=== PATIENT | female | born 1995 | race Hispanic/Latino ===

== ENCOUNTER 2018-01-02 13:40 | Emergency (ER) | payer SELFPAY ==
[~2018-01-02] VITALS: Ht 157.5 cm; Wt 63.5 kg
[2018-01-02 13:52] VITALS: BP 114/65
--- NOTE | 2018-01-02 13:55 | ED UPPER/LOWER EXTREMITY COMPL ---
History of Present Illness General Chief Complaint: Upper Extremity Problem Stated Complaint: R ARM NUMBNESS TINLGING PAIN RADIATING TO BACK?? Source: patient Exam Limitations: no limitations Vital Signs & Intake/Output Vital Signs & Intake/Output Vital Signs Date Time Temp Pulse Resp B/P B/P Pulse O2 O2 Flow FiO2 Mean Ox Delivery Rate 01/02 1615 Room Air 01/02 1352 96.5 91 20 114/65 98 Room Air Allergies Coded Allergies: latex (UNKNOWN 01/02/18) Uncoded Allergies: SEAFOOD (UNKNOWN 01/02/18) Reconcile Medications Cyclobenzaprine HCl 10 MG TABLET 1 TAB PO TID SPASMS Methylprednisolone. (Medrol) 4 MG TAB.DS.PK 1 DP PO AD tigling right arm 6 on day 1 then reduce by one tablet daily until gone Triage Note: PT TO ED C/O RIGHT ARM NUMBNESS THAT RADIATES TO BACK AND DOWN TO HAND X 2 WEEKS. Triage Nurses Notes Reviewed? yes Onset: Abrupt Duration: week(s): (2), constant Timing: recent history Severity: moderate, severe Pain/Injury Location: Right: Shoulder. No Modifying Factors: none : No Patient currently breastfeeds: No HPI: 22-year-old female comes into the emergency room for further evaluation of right shoulder pain. Patient reports associated numbness and tingling that radiates down her right shoulder into her fingers. She has associated pain. Worse with certain movements of her shoulder. Patient reports it started a couple weeks ago. She reports she woke up and the symptoms got progressively worse today. She came in for further evaluation. (Man Austin) Past History Travel History Traveled to [place] past 21 day No Medical History Any Pertinent Medical History? none Surgical History Surgical History: non-contributory Psychosocial History What is your primary language Albanian Tobacco Use: Never used ETOH Use: denies use Illicit Drug Use: denies illicit drug use Family History Hx Contributory? No (Man Austin) Review of Systems Review of Systems Constitutional: Reports: no symptoms. EENTM: Reports: no symptoms. Respiratory: Reports: no symptoms. Cardiovascular: Reports: no symptoms. Gastrointestinal/Abdominal: Reports: no symptoms. Genitourinary: Reports: no symptoms. Musculoskeletal: Reports: see HPI. Skin: Reports: no symptoms. Neurological/Psychological: Reports: no symptoms. Hematologic/Endocrine: Reports: no symptoms. Immunological: Reports: no symptoms. All Other Systems: Reviewed and Negative (Man Austin) Physical Exam Physical Exam General Appearance: well developed/nourished, no apparent distress, alert, awake Head: atraumatic Eyes: Bilateral: normal appearance. 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, radial pulse intact, gross sensation intact, Neurologic/Tendon: normal sensation, normal motor functions, normal tendon functions, responds to pain, no evidence tendon injury, no pulse deficit Skin: intact, normal color, warm/dry Diagram Shoulders Front/Back 1) (Man Austin) Progress Differential Diagnosis: contusion, dislocation, fracture, septic arthritis, sprain, tendon injury, muscle strain Plan of Care: Orders Procedure Date/time Status Durable Medical Equipment 01/02 1549 Active URINE 01/02 1355 Complete Laboratory Tests 01/02/18 1410: Urine Test NEGATIVE Diagnostic Imaging: Viewed by Me: Radiology Read. Discussed w/RAD: Radiology Read. Radiology Impression: PATIENT: SHERLYN JOHNSON PRESENT AGE: 22 PATIENT ACCOUNT NO: [id number] : 97 LOCATION: [facility] ORDERING PHYSICIAN: Man SIMON SERVICE DATE: 01/02/18-1354 EXAM TYPE : RAD - XRY-SHOULDER COMPLETE-RIGHT EXAMINATION: XR SHOULDER, RIGHT CLINICAL INFORMATION: RIGHT SHOULDER PAIN, TINGLING DOWN ARM COMPARISON: None TECHNIQUE: AP external rotation, Grashey, scapular Y, and axillary views of the right shoulder. FINDINGS: The humeral head appears normally located within the glenoid cavity. There is a tiny cortical step-off along the lateral aspect at the level of the epiphysis. This is best appreciated on the Grashey view. Otherwise, no evidence for acute fracture. There is prominence of the acromioclavicular joint which measures 5 mm. On the external rotation view of the clavicle appears slightly superiorly positioned compared to the acromium. The coracoclavicular interval is maintained. The right lung apex is clear. IMPRESSION: 1. Question possible nondisplaced fracture involving the growth plate of the proximal humerus laterally. Recommend correlation with symptoms. 2. Question injury to the acromioclavicular joint. This could be confirmed and further assessed with radiographs of the contralateral side and weightbearing examination. DICTATED BY : Shahla Harper MD DATE/TIME DICTATED:01/02/181506 EMERGENCY VETERINARY ASSISTANT:[place] DATE/TIME TRANSCRIBED:01/02/181506 CONFIDENTIAL, DO NOT COPY WITHOUT APPROPRIATE AUTHORIZATION. <Electronically signed in Other Vendor System> SIGNED BY: Shahla Harper MD 01/02/181516 (Man Austin) Departure Departure Disposition: HOME OR SELF CARE Condition: Stable Clinical Impression Primary Impression: Right shoulder pain Secondary Impressions: Numbness and tingling in right hand Referrals: Clau GUERRA,Gregory Additional Instructions: Follow-up with orthopedic doctor. Take Flexeril and Medrol Dosepak as prescribed. Return if any concerns worsening symptoms. Please go over all results of today's visit with your primary care doctor. Contact your primary care doctor to let them know you were here in the emergency room. There may be nonspecific findings which may not be related to your visit today here in the emergency room but may require further evaluation and chronic monitoring by your primary care doctor. If you had a laceration today the chance of foreign body always remains. You should follow-up with your primary care doctor for recheck in 3-5 days for a wound check. If you had an x-ray done there is a chance that a fracture could have been missed on initial read and you should follow-up with your primary care doctor for repeat x-rays if symptoms persist. If your blood pressure was elevated here in the emergency room please have rechecked by [facility] primary care doctor within the next 48. If you were prescribed a narcotic here in the emergency room or any type of controlled substances you're not allowed to drive while taking this medication or operate any type of heavy machinery. Narcotics can make you feel lightheaded dizziness nausea and can cause constipation. You may need to chicken picker a stool softener. Thank you for choosing [facility] emergency room. Please return to the emergency room immediately if you have any other concerns worsening of symptoms. Departure Forms: Customer Survey General Discharge Information Prescriptions: Current Visit Scripts Methylprednisolone. (Medrol) 1 DP PO AD #1 DP 6 on day 1 then reduce by one tablet daily until gone Cyclobenzaprine HCl 1 TAB PO TID #30 TAB Comments 01/02/2018 4:39:14 PM Patient clinically looks well. Patient is in no apparent distress. She had no falls or trauma. She reports that she had broken her right shoulder when she was a kid. No clinical signs for approximately humerus fracture. Patient was placed in a shoulder immobilizer and referred to orthopedic doctor. Ibuprofen Medrol Dosepak. Return if any other concerns. No motor weakness. Cervical radiculopathy versus muscle spasming. (Man Austin) PA/[employer] Co-Sign Statement Statement: ED Attending supervision documentation- [] I saw and evaluated the patient. I have also reviewed all the pertinent lab results and diagnostic results. I agree with the findings and the plan of care as documented in the PA's/KIL[employer]OURER's documentation. [X] I have reviewed the ED Record and agree with the PA's/KIL[employer] LABOURER's documentation. [] Additions or exceptions (if any) to the PAs/KIL[employer] LABOURER's note and plan are summarized below: [] (Polo GUERRA,Roger Barnett) Procedures Splinting Location: Right shoulder Pre-Made Type: shoulder mobilizer Splint Applied By: splint applied by me Pre-Proc Neuro Vasc Exam: normal Post-Proc Neuro Vasc Exam: normal (Man Austin)
--- NOTE | 2018-01-02 15:17 | RADIOLOGY REPORT ---
EXAMINATION: XR SHOULDER, RIGHT CLINICAL INFORMATION: RIGHT SHOULDER PAIN, TINGLING DOWN ARM COMPARISON: None TECHNIQUE: AP external rotation, Grashey, scapular Y, and axillary views of the right shoulder. FINDINGS: The humeral head appears normally located within the glenoid cavity. There is a tiny cortical step-off along the lateral aspect at the level of the epiphysis. This is best appreciated on the Grashey view. Otherwise, no evidence for acute fracture. There is prominence of the acromioclavicular joint which measures 5 mm. On the external rotation view of the clavicle appears slightly superiorly positioned compared to the acromium. The coracoclavicular interval is maintained. The right lung apex is clear. IMPRESSION: 1. Question possible nondisplaced fracture involving the growth plate of the proximal humerus laterally. Recommend correlation with symptoms. 2. Question injury to the acromioclavicular joint. This could be confirmed and further assessed with radiographs of the contralateral side and weightbearing examination.
[2018-01-02] MEDS ORDERED: MEDROL4 M2 PO (15:48)
[2018-01-02] MEDS ORDERED: CYCLOBENZAPRINE10 M1 PO (15:48)
== END 2018-01-02 16:16 ==
LOC: ERH 13:40
DX: M25.511 Pain in right shoulder (principal); R20.0 Anesthesia of skin
CPT/HCPCS: 73030-RT; 81025

== ENCOUNTER 2018-02-20 23:41 | Emergency (ER) | payer OTHER ==
[~2018-02-20] VITALS: Ht 157.5 cm; Wt 67.1 kg
[~2018-02-20 23:41] MED LIST: CYCLOBENZAPRINE10 M1 PO; MEDROL4 M2 PO
[2018-02-21 01:30] VITALS: BP 130/60
--- NOTE | 2018-02-21 01:45 | ED NECK/BACK PAIN COMPLAINT ---
History of Present Illness General Chief Complaint: Low Back Pain/Injury Stated Complaint: LOW BACK PAIN Source: patient Exam Limitations: no limitations Vital Signs & Intake/Output Vital Signs & Intake/Output Vital Signs Date Time Temp Pulse Resp B/P B/P Pulse O2 O2 Flow FiO2 Mean Ox Delivery Rate 02/21 0130 98.6 85 18 130/60 99 Room Air 02/21 0004 99.7 89 20 104/62 96 Room Air ED Intake and Output 02/21 0000 02/20 1200 Intake Total Output Total Balance Patient 148 lb Weight Weight Standing Scale Measurement Method Allergies Coded Allergies: latex (UNKNOWN 01/02/18) Uncoded Allergies: SEAFOOD (UNKNOWN 01/02/18) Reconcile Medications Cyclobenzaprine HCl 10 MG TABLET 1 TAB PO TID SPASMS Methylprednisolone. (Medrol) 4 MG TAB.DS.PK 1 DP PO AD tigling right arm 6 on day 1 then reduce by one tablet daily until gone Triage Note: PT REPORTS FEELING WEAK AND TIRED FOR "LIKE A WEEK OR TWO". PT REPORTS BACK PAIN, "I TOOK SOME PILLS AND IT DONT GO AWAY". Triage Nurses Notes Reviewed? yes : No Patient currently breastfeeds: No HPI: 22-year-old female presents with atraumatic middle low back pain over the past week after bending over. She denies any radiation of the pain, bowel or bladder incontinence, fever, leg weakness, flank pain, nausea, vomiting, diarrhea, rash, history of trauma, or difficulty ambulating. Patient reports a previous history of scoliosis. She denies any urinary tract symptoms. Past History Travel History Traveled to [place] past 21 day No Medical History Any Pertinent Medical History? 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 No Review of Systems Review of Systems Constitutional: Reports: see HPI. Denies: no symptoms, chills, diaphoresis, fever, malaise, weakness, unexplained weight loss. Physical Exam Physical Exam General Appearance: well developed/nourished, no apparent distress Head: atraumatic, normal appearance Eyes: Bilateral: normal appearance. Neck: normal inspection, supple, full range of motion Respiratory: normal breath sounds, chest non-tender Cardiovascular: regular rate/rhythm Gastrointestinal: normal bowel sounds, soft, non-tender Back: Tenderness over the middle back at the area of L4. SLR negative. EHL function normal. DTR's normal over patella and achilles. Limited flexion secondary to pain. Core Measures CVA/TIA Diagnosis: No Progress Differential Diagnosis: herniated disc, myofascial strain, sciatica, T/L spine injury Plan of Care: Orders Procedure Date/time Status URINE 02/20 2355 Complete URINALYSIS 02/20 2355 Complete Laboratory Tests 02/20/182356: Urine Color YEL, Urine Clarity HAZY H, Urine pH 6.0, Ur Specific [place] >= 1.030, Urine Protein NEG, Urine Ketones NEG, Urine Nitrite NEG, Urine Bilirubin NEG, Urine Urobilinogen 0.2, Ur Leukocyte Esterase MOD H, Ur Microscopic SEDIMENT EXAMINED, Urine RBC 1-3, Urine WBC 3-5 H, Ur Epithelial Cells MANY H, Urine Bacteria MANY H, Urine Hemoglobin TRACE-INTACT, Urine Glucose NEG, Urine Test NEGATIVE Comments: Patient with atraumatic back pain with tenderness in the area of the annulus over L4-5. Patient without signs of acute myelopathy or radicular symptoms. Plan is conservative treatment with nonsteroidal anti-inflammatory drugs and Tylenol and referral to Orth O on-call for repeated assessments. Departure Departure Time of Disposition: 144 Disposition: HOME OR SELF CARE Condition: Stable Clinical Impression Primary Impression: Low back pain Qualifiers: Chronicity: unspecified Back pain laterality: midline Sciatica presence: without sciatica Qualified Code: M54.5 - Low back pain Referrals: Patient Has No Primary Care Dr (PCP/Family) Additional Instructions: Please take extra strength Tylenol 1000 mg every 4 hours as needed for pain. Please follow-up with the orthopedist conductor sleeping car for repeat assessment this week Departure Forms: Customer Survey General Discharge Information
[2018-02-21] MEDS ORDERED: NAPROSYN500 M1 PO (01:48)
[2018-02-21] MEDS ORDERED: KEFLEX500 M1 PO (21:52)
[2018-02-21] MEDS ORDERED: CYCLOBENZAPRINE10 M1 PO (21:52)
[2018-02-21] MEDS ORDERED: IBUPROFEN800 M1 PO (22:04)
== END 2018-02-21 02:09 ==
LOC: ERH 23:41
DX: M54.5 Low back pain (principal)
CPT/HCPCS: 81001; 81025